=== PATIENT | male | born 1985 ===

== ENCOUNTER 2017-07-19 07:31 | Emergency (ER) | payer BC ==
[2017-07-19 07:48] VITALS: BP 156/100
[2017-07-19] MEDS ORDERED: Triamcinolone Acetonide* 40 MG/ML 1 ML VIAL IM ONE (08:03)
--- NOTE | 2017-07-19 08:11 | UC ---
Skin Complaint HPI - HPI Summary HPI Summary: 32 yo male here with concerns of tinea cruris pruritic rash x 5 days onset after yard work spreading - History of Current Complaint Chief Complaint: UCRash Time Seen by Provider: 07/19/17 07:49 Stated Complaint: PERSONAL Hx Obtained From: Patient Onset/Duration: Gradual Onset Skin Exposure Onset/Duration: Days Ago Onset Severity: Mild Current Severity: Moderate Pain Intensity: 0 Pain Scale Used: 0-10 Numeric Location: Other - penis/scrotum/inginal region/lower abd Character: Swelling, Pruritus, Redness Aggravating Factor(s): Nothing Alleviating Factor(s): Nothing - Allergy/Home Medications Allergies/Adverse Reactions: Allergies Allergy/AdvReac Type Severity Reaction Status Date / Time No Known Allergies Allergy Verified 07/19/17 07:44 Home Medications: Home Medications Clotrimazole/Betamethasone* [Lotrisone Cream*] 1 applic TOPICAL TID PRN [History Confirmed 07/19/17] Review of Systems Constitutional: Negative Skin: Rash Eyes: Negative ENT: Negative Respiratory: Negative Cardiovascular: Negative Gastrointestinal: Negative Genitourinary: Negative Motor: Negative Neurovascular: Negative Musculoskeletal: Negative Neurological: Negative Psychological: Negative Is Patient Immunocompromised?: No All Other Systems Reviewed And Are Negative: Yes PMH/Surg Hx/FS Hx/Imm Hx Previously Healthy: Yes Cardiovascular History: Hypertension - currently off meds - Surgical History Surgical History: None - Family History Known Family History: Positive: Cardiac Disease, Hypertension, Diabetes - Social History Alcohol Use: Occasionally Substance Use Type: None Smoking Status (MU): Heavy Every Day Tobacco Smoker Type: Smokeless Tobacco Amount Used/How Often: 1 can per day Length of Time of Smoking/Using Tobacco: Since Age 25 Physical Exam Triage Information Reviewed: Yes Appearance: Well-Appearing, No Pain Distress, Well-Nourished Vital Signs: Initial Vital Signs Temp 98.6 F 07/19/17 07:42 Pulse 92 07/19/17 07:42 Resp 16 07/19/17 07:42 BP 156/100 07/19/17 07:42 Pulse Ox 99 07/19/17 07:42 Vital Signs Reviewed: Yes Eyes: Positive: Conjunctiva Clear ENT: Positive: Hearing grossly normal. Negative: Nasal congestion, Nasal drainage, Trismus, Muffled voice, Hoarse voice Neck: Positive: Supple Respiratory: Positive: Lungs clear, Normal breath sounds, No respiratory distress, No accessory muscle use Cardiovascular: Positive: RRR, No Murmur Musculoskeletal: Positive: ROM Intact Neurological: Positive: Alert Psychological Exam: Normal Skin Exam: Other - rash c/w contact dermatitis in regions mentioned in HPI Course/Dx - Diagnoses Provider Diagnoses: contact dermatitis Discharge - Sign-Out/Discharge Documenting (check all that apply): Discharge/Admit/Transfer - Discharge Plan Condition: Stable Disposition: HOME Patient Education Materials: Contact Dermatitis (ED) Referrals: Lissy Winslow PA [Primary Care Provider] - 2 Weeks Additional Instructions: your rash looks most consistent with a contact dermatitis the steroid shot will take care of that you can continue the lotrimen just in case there is a fungal element to the rash - Billing Disposition and Condition Condition: STABLE Disposition: HOME
== END 2017-07-19 08:27 | disposition home or self-care (01) ==
LOC: UCCORT 07:31
DX: L25.9 Unspecified contact dermatitis, unspecified cause (principal); F17.290 Nicotine dependence, other tobacco product, uncomplicated
CPT/HCPCS: 99211; G0463; J3301